=== PATIENT | female | born 1985 ===

== ENCOUNTER 2018-02-02 16:40 | Inpatient (IN) | payer OTHER ==
[~2018-02-02] VITALS: Ht 167.6 cm; Wt 98.2 kg
[~2018-02-02 16:40] MED LIST: IBUP-1222 PO; METF10002 PO; OXYC-302 PO; PREN1TAB60 PO
[2018-02-02] MEDS ORDERED: CALCIUM CARBONATE 500 MG TAB.CHEW PO PRN (17:00)
[2018-02-02] MEDS ORDERED: MISOPROSTOL 25 MCG TABLET VG PRN (17:00)
[2018-02-02] MEDS: LACTATED RINGERS 1,000 ML IV SCH (17:00)
[2018-02-02] MEDS ORDERED: TERBUTALINE 1 MG/ML, 1ML IVPush PRN (17:00)
[2018-02-02] MEDS ORDERED: OXYTOCIN 30U/ 0.9% NaCL 500ML 500 ML IV ONE (17:00)
[2018-02-02] MEDS ORDERED: ALUMINUM/MAG/SIMETHICONE 30 ML UDC PO PRN (17:00)
[2018-02-02] MEDS ORDERED: FENTANYL PF 100 MCG/2ML IV PRN (17:00)
[2018-02-02] MEDS ORDERED: ONDANSETRON 2MG/ML, 2ML IVPush PRN (17:00)
[2018-02-02] MEDS ORDERED: FENTANYL PF 100 MCG/2ML IVPush PRN (17:00)
[2018-02-02] MEDS: D5%-LACTATED RINGERS 1,000 ML IV SCH (17:00)
[2018-02-02 17:10] VITALS: BP 130/88
[2018-02-02] MEDS ORDERED: MISOPROSTOL 25 MCG TABLET ONE (17:29)
[2018-02-02] MEDS: PLEASE ENTER HEIGHT AND WEIGHT MC SCH (17:30)
[2018-02-02] MEDS ORDERED: METF500T5 PO (17:37)
[2018-02-02 17:51] LABS: BASOPHILS # (AUTO) 0.05 x10^3/uL (0-0.1); BASOPHILS % (AUTO) 1 % (0-1); EOSINOPHILS # (AUTO) 0.05 x10^3/uL (0-0.4); EOSINOPHILS % (AUTO) 1 % (1-7); LYMPHOCYTES # (AUTO) 1.78 x10^3/uL (1-3.4); LYMPHOCYTES % (AUTO) 21 % (22-44); MD NO; MEAN CORPUSCULAR HEMOGLOBIN 31.4 pg (27.0-34.8); MEAN CORPUSCULAR VOLUME 89.7 fL (80-100); MEAN PLATELET VOLUME 8.3 fL (7.4-10.4); MONOCYTES # (AUTO) 0.59 x10^3/uL (0.2-0.8); MONOCYTES % (AUTO) 7 % (2-9); NEUTROPHILS # (AUTO) 6.15 x10^3/uL (1.8-6.8); NEUTROPHILS % (AUTO) 71 % (42-75); PLATELET COUNT 172 x10^3/uL (130-400); RED BLOOD COUNT 4.12 x10^6/uL (3.82-5.3); RED CELL DISTRIBUTION WIDTH 14.1 % (9.6-15.2)
[2018-02-02 17:59] LABS: ALANINE AMINOTRANSFERASE 17 U/L (12-78); ALBUMIN 2.7 g/dL (3.4-5.0); ANION GAP 12 mmol/L (5-15); BILIRUBIN, DIRECT 0.2 mg/dL (0.1-0.2); CALCIUM 8.7 mg/dL (8.5-10.1); CHLORIDE 108 mmol/L (98-107)
[2018-02-02 18:01] LABS: ALKALINE PHOSPHATASE 141 U/L (45-117); BILIRUBIN,TOTAL 1.1 mg/dL (0.2-1.0); CREATININE 0.87 mg/dL (0.55-1.02); TOTAL PROTEIN 7.1 g/dL (6.4-8.2)
[2018-02-02 18:12] LABS: MICROSCOPIC INDICATED
[2018-02-02] MEDS ORDERED: LIDOCAINE/PF 1%, 30ML ONE (18:42)
[2018-02-02] MEDS ORDERED: NEWBORN KIT ONE (18:42)
[2018-02-02] MEDS ORDERED: MISOPROSTOL 200 MCG TABLET ONE (18:43)
[2018-02-02] MEDS ORDERED: OXYTOCIN 30U/ 0.9% NaCL 500ML 500 ML ONE (18:43)
[2018-02-02] MEDS ORDERED: ONDANSETRON 2MG/ML, 2ML ONE (23:47)
[2018-02-02] MEDS ORDERED: EPHEDRINE 50 MG/ML, 1ML ONE (23:59)
[2018-02-03] MEDS: D5%-LACTATED RINGERS 1,000 ML IV SCH ×2 (01:00→09:00)
[2018-02-03] MEDS: LACTATED RINGERS 1,000 ML IV SCH ×2 (01:00→09:00)
[2018-02-03] MEDS ORDERED: OXYTOCIN 30U/ 0.9% NaCL 500ML 500 ML IV PRN (01:25)
[2018-02-03] MEDS: PLEASE ENTER HEIGHT AND WEIGHT MC SCH ×2 (01:30→09:30)
[2018-02-03] MEDS ORDERED: IBUPROFEN 600 MG TABLET ONE (05:55)
[2018-02-03] MEDS ORDERED: OXYcodone/APAP 5/325MG TABLET ONE (05:55)
[2018-02-03] MEDS: OXYTOCIN 30U/ 0.9% NaCL 500ML 500 ML IV SCH ×2 (05:56→15:56)
[2018-02-03] MEDS ORDERED: OXYcodone/APAP 5/325MG TABLET PO PRN ×2 (06:00)
[2018-02-03] MEDS ORDERED: ACETAMINOPHEN 325 MG TABLET PO PRN (06:00)
[2018-02-03] MEDS ORDERED: MISOPROSTOL 200 MCG TABLET PR PRN (06:00)
[2018-02-03] MEDS ORDERED: DOCUSATE 100 MG CAPSULE PO PRN (06:00)
[2018-02-03] MEDS: IBUPROFEN 600 MG TABLET PO PRN ×3 (06:01→19:41)
[2018-02-03] MEDS ORDERED: ONDANSETRON 2MG/ML, 2ML ONE (06:02)
[2018-02-03] MEDS: ONDANSETRON 2MG/ML, 2ML IV PRN ×2 (06:06→19:43)
[2018-02-03] MEDS ORDERED: OXYTOCIN 30U/ 0.9% NaCL 500ML 500 ML ONE (06:12)
[2018-02-03 07:45] VITALS: BP 105/68
[2018-02-03] MEDS: PRENATAL VIT/IRON/FA 1 EACH TABLET PO SCH (09:00)
[2018-02-03 12:00] VITALS: BP 103/70
[2018-02-03 13:09] LABS: BASOPHILS # (AUTO) 0.04 x10^3/uL (0-0.1); BASOPHILS % (AUTO) 0 % (0-1); EOSINOPHILS # (AUTO) 0.03 x10^3/uL (0-0.4); EOSINOPHILS % (AUTO) 0 % (1-7); LYMPHOCYTES # (AUTO) 1.67 x10^3/uL (1-3.4); LYMPHOCYTES % (AUTO) 15 % (22-44); MD NO; MEAN CORPUSCULAR HEMOGLOBIN 30.3 pg (27.0-34.8); MEAN CORPUSCULAR HGB CONC 33.5 g/dL (32.4-35.8); MEAN CORPUSCULAR VOLUME 90.6 fL (80-100); MONOCYTES # (AUTO) 0.77 x10^3/uL (0.2-0.8); MONOCYTES % (AUTO) 7 % (2-9); NEUTROPHILS # (AUTO) 8.52 x10^3/uL (1.8-6.8); NEUTROPHILS % (AUTO) 77 % (42-75); PLATELET COUNT 147 x10^3/uL (130-400); RED BLOOD COUNT 3.76 x10^6/uL (3.82-5.3)
[2018-02-03 16:30] VITALS: BP 125/78
[2018-02-03 20:30] VITALS: BP 124/75
[2018-02-04 00:20] VITALS: BP 105/72
[2018-02-04] MEDS: OXYTOCIN 30U/ 0.9% NaCL 500ML 500 ML IV SCH (01:56)
[2018-02-04 04:30] VITALS: BP 126/85
[2018-02-04 07:30] VITALS: BP 134/83
[2018-02-04] MEDS: PRENATAL VIT/IRON/FA 1 EACH TABLET PO SCH (08:48)
[2018-02-04] MEDS: IBUPROFEN 600 MG TABLET PO PRN (08:48)
[2018-02-04] MEDS ORDERED: IBUP-1222 PO (09:59)
== END 2018-02-04 11:46 | disposition home or self-care (01) | DRG 775 ==
LOC: LDIP 16:46 → 2NW 02-03 07:42
PROVIDERS: ADMIT Obstetrics & Gynecology; ATTEND Obstetrics & Gynecology
PROC: 10907ZC Drainage of Amniotic Fluid, Therapeutic from Products of Conception, Via Natural or Artificial Opening (ICD-10-PCS; principal; 2018-02-03)
PROC: 10E0XZZ Delivery of Products of Conception, External Approach (ICD-10-PCS; 2018-02-03)
PROC: 0KQM0ZZ Repair Perineum Muscle, Open Approach (ICD-10-PCS; 2018-02-03)
PROC: 3E0P7VZ Introduction of Hormone into Female Reproductive, Via Natural or Artificial Opening (ICD-10-PCS; 2018-02-03)
PROC: 3E0R3BZ Introduction of Anesthetic Agent into Spinal Canal, Percutaneous Approach (ICD-10-PCS; 2018-02-03)
PROC: 00HU33Z Insertion of Infusion Device into Spinal Canal, Percutaneous Approach (ICD-10-PCS; 2018-02-03)
DX: O16.4 Unspecified maternal hypertension, complicating childbirth (principal); O70.1 Second degree perineal laceration during delivery; Z37.0 Single live birth; Z3A.39 39 weeks gestation of pregnancy
CPT/HCPCS: 36415; 80053; 81001; 82248; 84550; 85025; 86850; 86900; 86902; J2405; J2590